=== PATIENT | female | born 1950 ===

== ENCOUNTER 2018-03-21 09:12 | Outpatient (CLI) | payer MEDICARE ==
--- NOTE | 2018-03-21 10:13 | ULT ---
ULTRASOUND RETROPERITONEUM LIMTED: (ABDOMINAL AORTA) HISTORY: Z13.6, encounter for abdominal aortic aneurysm screening, in 67-year-old female. FINDINGS: The caliber of the entire abdominal aorta is normal. There is atherosclerotic irregularity of the del cid rfaces of the abdominal aorta. IMPRESSION: 1. No abdominal aortic aneurysm. 2. Atherosclerosis of abdominal aorta. fernando Kowalski POS: [facility]
--- NOTE | 2018-03-21 10:27 | BD ---
DEXA BONE DENSITY STUDY: History: Post-menopausal. Lumbar Spine: BMD (g/cm2) L1 0.813 T-Score: -1.6 L2 1.039 T-Score: +0.1 L3 1.274 T-Score: +1.7 L4 1.098 T-Score: +0.3 L1-L4 1.064 T-Score: +0.2 Femoral Neck: 0.667 T-Score: -1.6 Total Femur: 0.862 T-Score: -0.7 Impression: 1. Osteopenia left femoral neck. Normal bone mineral density of the lumbar spine. 2. 10-year fracture risk of major osteoporotic fracture is 15%, hip fracture 2.7%. These fracture pro babilities are calculated for an untreated patient. POS: [facility]
== END 2018-03-21 09:13 | disposition home or self-care (01) ==
LOC: BICULT 09:12
PROVIDERS: ATTEND Family Medicine
DX: Z13.820 Encounter for screening for osteoporosis (principal); Z13.6 Encounter for screening for cardiovascular disorders; M85.88 Other specified disorders of bone density and structure, other site; I70.0 Atherosclerosis of aorta
CPT/HCPCS: 76775; 77080